=== PATIENT | female | born 2000 | race African-American/Black ===

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

== ENCOUNTER 2024-11-07 11:36 | Emergency (ER) | payer OTHER, SELFPAY | END 2024-11-07 12:00 | disposition home or self-care (01) | LOC: NAV ERS 11:36 | DX: L03.115 Cellulitis of right lower limb (principal) | CPT/HCPCS: 99282 ==